=== PATIENT | male | born 1955 | race Caucasian/White ===

== ENCOUNTER 2016-12-18 23:45 | Emergency (ER) | payer BC ==
--- NOTE | ~2016-12-18 | HP ---
History And Physical [address] [place]. [address] NAME: MASSIEL CORNEJO : 51 STATUS : [facility] PAT#: [id number] AGE: 61 ADM/REG DATE : 12/18/16 MR#: [id number] REPORT SERV DATE: 12/19/16 DICTATED BY: KELLY KIM DATE: 12/19/16 REPORT STATUS : Draft TRANSCRIBED BY: MODTamika DATE: 12/19/16 DATE OF ADMISSION: 12/19/2016 CHIEF COMPLAINT: Headache. HISTORY OF PRESENT ILLNESS: The patient is a 61-year-old white male, who came to the ER last evening around 1130 hours, complaining of a tense headache. He had no associated neck pain, no photophobia. He had some slight nausea. He had some right-sided arm pain around the deltoid. This morning, he has been here now for several hours, he states, his headache is now a 2/10 and his right arm pain has resolved. He again did not have any neck pain or fevers, did not have any cough, did not have any abdominal pain, did not have any photophobia. He does have sleep apnea. He has had previous headaches. The only new medication that he has taken is Tresiba. PAST MEDICAL HISTORY: 1. Diabetes mellitus. 2. BREEZY, on CPAP, that he wears consistently. 3. Hyperlipidemia. 4. PVD with a stent to the lower extremity. 5. Chronic thrombocytopenia. 6. COPD. 7. Tobacco abuse, which is continued. 8. GERD. 9. Arthritis. 10.Skin cancer. 11.Diverticular disease. 12.Gastritis. 13.Chronic back pain. 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 15.Gastroparesis. SOCIAL HISTORY: He smokes one and half pack per day. He is . Does not use alcohol. He works as security at [employer]. SURGICAL HISTORY: He has had spine surgery, cholecystectomy, nephrectomy, stent in his leg, and appendectomy. ALLERGIES: PPIS. FAMILY HISTORY: Dad of prostate cancer. Mother of anesthetic complications. HOME MEDICATIONS: Reviewed and attached. REVIEW OF SYSTEMS: Full 10-point review of systems was obtained, pertinent positives are mentioned in the HPI. History And Physical [address] [place]. [address] NAME: MASSIEL CORNEJO : 51 STATUS : [facility] PAT#: [id number] AGE: 61 ADM/REG DATE : 12/18/16 MR#: [id number] REPORT SERV DATE: 12/19/16 DICTATED BY: KELLY KIM DATE: 12/19/16 REPORT STATUS : Draft TRANSCRIBED BY: BENITA DATE: 12/19/16 PHYSICAL EXAMINATION: VITAL SIGNS: BP 137/74, temperature 97.9, pulse 86, respiratory rate 17, sats 96%. GENERAL: Well-developed white male, in no apparent distress. HEENT: Normocephalic, atraumatic. Throat is clear. NECK: Supple. HEART: Regular rate and rhythm. LUNGS: Grossly clear. ABDOMEN: Soft, nontender, nondistended. EXTREMITIES: Warm and dry. SKIN: Intact. No rashes are noted. NEUROLOGIC: He is alert. He is alert to person, place, and time. Mood and affect are appropriate. Speech is intact. Cranial nerves 2 through 12 are intact. Strength and tone are symmetrical in all four extremities. LABORATORIES: Electrolyte panel, sodium 138, potassium 3.8, chloride 100, CO2 of 29, BUN and creatinine are 18 and 1.41, glucose is 214. Troponin is 0.02. His baseline creatinine is right around 1.4. CBC shows hemoglobin 18.9, platelets are 133, and white blood cell count is 11. His sedimentation rate is 2. Brain CT was essentially normal. CTA of the brain was normal. ASSESSMENT/PLAN: 1. Headache, now improved to 2/10, some mild nausea. CT scan including CTA were both negative. Labs were unrevealing. I think given negative imaging and improvement in symptoms, he could certainly be discharged. He states he would like to go home and follow up with Dr. Porras in the next 24-48 hours. I am going to give him 8 mg dose of Zofran for some nausea. He has gotten several doses of narcotics and certainly I think that has contributed. He is advised to follow up with Dr. Porras in the next 24- 48 hours. He has no neurological deficits and negative imaging. I think it is safe to discharge him. 2. Chronic kidney disease with solitary kidney. He did get some contrast here. I have advised him he needs to get his kidney function checked in the next [address] Porras. He is going to follow up with him and have that performed. 3. History of obstructive sleep apnea. He is compliant with CPAP. I encouraged him to continue so. 4. Diabetes mellitus. The patient recently started Tresiba. There is a 9% to 12% incidence of headache associated with it. We will let him discuss with Dr. Porras regarding whether he needs to change his medications. 5. History of peripheral artery disease. 6. Disposition. The patient will be discharged from the ER with followup with Dr. Porras in 24-48 hours. APRIL/BENITA Kelly Perez History And Physical [address] [address] NAME: MASSIEL CORNEJO : 51 STATUS : [facility] ER PAT#: [id number] AGE: 61 ADM/REG DATE : 12/18/16 MR#: [id number] REPORT SERV DATE: 12/19/16 DICTATED BY: KELLY KIM DATE: 12/19/16 REPORT STATUS : Draft TRANSCRIBED BY: BENITA DATE: 12/19/16 Karen Kim / [id number] CC: Rodrigo Helton Jr, MD David Winters, D.O.
[~2016-12-18 23:45] MED LIST: ADVAIR; AMOXIL875 MG PO; ASAB PO; ASMANEX INH; AVALOX; BRILINTA90 MG PO; COMBIVENT RESPIM4 GM INH; DSS PO; HALF81 PO; ILEVRO1.7 ML OPH; K500 PO; LEVEMFLXPN SC; LEVEMFLXPN SQ; LEVEMIR SC; LIPITOR20 PO; LIPITOR40 PO; LOP25 PO; LOP50 PO; MEDROLPAK4 PO; NEUR300 PO; NEUR600 PO; NEURONTIN PO; NICODERM C21 MG/241 TOP; NITROQUICK0.4 MG SL; NITROSTAT0.4 MG SL; NORCO1 TAB PO; NOVOLOG SC; NOVOPEN SC; NOVOPEN SQ; OXECTA7.5 MG PO; PLAVIX PO; PROAIR HFA INH; PROTONIX PO; REG PO; SINGULAIR1 PO; SPIRIVA INH; V5 PO; ZANTAC300 MG PO; [UNRECOGNIZED DRUG - OTHER] OR
[2016-12-19 03:30] LABS: BASOPHILS 0.5 %; BASOPHILS ABSOLUTE 0.05 10/3/uL (0.0-0.16); EOSINOPHILS 2.6 %; EOSINOPHILS ABSOLUTE 0.28 10/3/uL (0.0-0.53); ER CBC TAT 0 Hrs 04 MinsNP; HEMATOCRIT 52.8 % (40.0-51.0); HEMOGLOBIN 18.9 g/dL (13.6-17.8); IMMATURE GRANULOCYTES 0.6 %; IMMATURE GRANULOCYTES ABSOLUTE 0.07 10/3/uL (0.0-0.11); LYMPHOCYTES 27.5 %; LYMPHOCYTES ABSOLUTE 3.01 10/3/uL (0.67-4.30); MANUAL DIFF NO %; MEAN CORPUS HGB CONC 35.8 g/dL (32.0-36.0); MEAN CORPUSCULAR HEMOGLOB 34.6 pg (26.0-34.0); MEAN CORPUSCULAR VOLUME 96.7 fL (80-100); MEAN PLATELET VOLUME 11.8 fL (9.2-13.0); MONOCYTES 6.6 %; MONOCYTES ABSOLUTE 0.72 10/3/uL (0.21-1.20); NEUTROPHILS 62.2 %; NEUTROPHILS ABSOLUTE 6.82 10/3/uL (2.02-8.40); PLATELET COUNT 133 10/3/uL (150-400); RBC DISTRIBUTION WIDTH 12.7 % (12.0-16.0); RED CELL COUNT 5.46 10/6/uL (4.7-6.1)
[2016-12-19 03:46] LABS: CALCIUM, SERUM 8.9 MG/DL (8.5-10.4); CHLORIDE, SERUM 100 MMOL/L (96-112); CO2 (CARBON DIOXIDE) 29 MMOL/L (24-34); CREATININE 1.41 MG/DL (0.70-1.30); GFR AFRICAN AMERICAN 61 ML/MIN (>=60); GFR NON AFRICAN AMERICAN 53 ML/MIN (>=60); POTASSIUM, SERUM 3.8 MMOL/L (3.5-5.3); SODIUM, SERUM 138 MMOL/L (135-148); TROPONIN I <0.02 NG/ML (<0.05)
[2016-12-19 03:47] LABS: BUN (BLOOD UREA NITROGEN) 18 MG/DL (6-23); GLUCOSE, SERUM 214 MG/DL (60-99)
[2016-12-19 04:06] LABS: SED RATE 2 MM/HR (0-15)
[2016-12-19] MEDS ORDERED: TRESIBA FL100 UNIT/1 SC (07:50)
[2016-12-19] MEDS ORDERED: NOVOLOG SC (07:51)
[2016-12-19] MEDS ORDERED: LIPITOR40 PO (07:53)
[2016-12-19] MEDS ORDERED: NEUR600 PO (07:53)
[2016-12-19] MEDS ORDERED: ASAB PO (07:53)
[2016-12-19] MEDS ORDERED: COMBIVENT RESPIM4 GM INH (07:54)
[2016-12-19] MEDS ORDERED: ZANTAC300 MG PO (07:54)
[2016-12-19] MEDS ORDERED: LOP25 PO (07:54)
[2016-12-19] MEDS ORDERED: SINGULAIR1 PO (07:54)
[2016-12-19] MEDS ORDERED: NITROSTAT0.4 MG SL (07:56)
[2017-01-15] MEDS ORDERED: ASAB PO (19:13)
[2017-01-15] MEDS ORDERED: NEUR600 PO (19:13)
[2017-01-15] MEDS ORDERED: ZANTAC300 MG PO (19:13)
[2017-01-15] MEDS ORDERED: LOP25 PO (19:13)
[2017-01-15] MEDS ORDERED: COMBIVENT RESPIM4 GM INH (19:14)
[2017-01-15] MEDS ORDERED: SINGULAIR1 PO (19:14)
[2017-01-15] MEDS ORDERED: LIPITOR40 PO (19:14)
[2017-01-15] MEDS ORDERED: NOVOLOG SC (19:14)
[2017-01-15] MEDS ORDERED: TRESIBA FL100 UNIT/1 SC (19:14)
[2017-01-15] MEDS ORDERED: CIP5 PO (19:15)
[2017-01-15] MEDS ORDERED: FLAG500TAB PO (19:16)
[2017-01-18] MEDS ORDERED: AUG875 PO (10:01)
[2017-01-18] MEDS ORDERED: PERCOCET 10/3251 TAB PO (10:01)
[2017-07-11] MEDS ORDERED: TRESIBA FL200 UNIT/1 SC (20:06)
[2017-07-11] MEDS ORDERED: LIPITOR40 PO (20:06)
[2017-07-11] MEDS ORDERED: LOP25 PO (20:07)
[2017-07-11] MEDS ORDERED: SINGULAIR1 PO (20:07)
[2017-07-11] MEDS ORDERED: COMBIVENT RESPIM4 GM INH (20:08)
[2017-07-11] MEDS ORDERED: ASAB PO (20:08)
[2017-07-11] MEDS ORDERED: ZANTAC300 MG PO (20:09)
[2017-07-12] MEDS ORDERED: NITROSTAT0.4 MG SL (10:38)
== END 2016-12-19 11:38 | disposition home or self-care (01) ==
LOC: ER 23:45
PROVIDERS: Emergency Medicine
DX: R51 Headache (principal); M79.601 Pain in right arm; J32.9 Chronic sinusitis, unspecified; J44.9 Chronic obstructive pulmonary disease, unspecified; E11.9 Type 2 diabetes mellitus without complications; K21.9 Gastro-esophageal reflux disease without esophagitis; Z91.09 Other allergy status, other than to drugs and biological substances; Z79.4 Long term (current) use of insulin; Z79.82 Long term (current) use of aspirin; Z79.899 Other long term (current) drug therapy
CPT/HCPCS: 70450; 70496; 80048; 82962; 84484; 85025; 85652; 93005; 96374; 96375; 99285; J1170; J1200; J1885; J2405; J2765; Q9967